=== PATIENT | female | born 1980 | race Caucasian/White ===

== ENCOUNTER 2016-12-20 01:31 | Emergency (ER) | payer OTHER ==
[2016-12-20 01:35] VITALS: TEMP 98.5
--- NOTE | 2016-12-20 01:46 | ED ---
General Adult HPI - General Chief complaint: Shortness of Breath Stated complaint: SOB/Pain Time Seen by Provider: 12/20/16 01:36 Source: patient, RN notes reviewed Mode of arrival: ambulatory Limitations: no limitations - History of Present Illness Initial comments: 28-year-old female presents emergency Department chief complaint of bodies, cough and shortness of breath. Patient states it started last 24 hours. She states that her cough is dry and nonproductive. Patient states that she felt that she had a fever, admits to chills. Patient does take pain medication which contains acetaminophen. Patient states that she does not have a sore throat, ear pain, headache or any neck stiffness. Patient had no GI symptoms including nausea, vomiting, or constipation. Denies any palpitations. Patient has no cardiac issues. Patient denies hypertension hyperlipidemia. - Related Data Previous Rx's Medication Instructions Recorded Azithromycin [Zithromax Z-pack] 0 mg PO DIRECTED #1 pack 12/20/16 Allergies Allergy/AdvReac Type Severity Reaction Status Date / Time latex AdvReac Itching Verified 12/20/16 01:35 IVORY SOAP AdvReac Itching Uncoded 12/20/16 01:35 Review of Systems ROS Statement: Those systems with pertinent positive or pertinent negative responses have been documented in the HPI. ROS Other: All systems not noted in ROS Statement are negative. Past Medical History Additional Past Medical History / Comment(s): BACK PAIN History of Any Multi-Drug Resistant Organisms: None Reported Additional Past Surgical History / Comment(s): [id number] Past Psychological History: No Psychological Hx Reported Smoking Status: Current every day smoker Past Alcohol Use History: None Reported Past Drug Use History: None Reported General Exam Limitations: no limitations General appearance: alert, in no apparent distress, anxious Head exam: Present: atraumatic, normocephalic, normal inspection Eye exam: Present: normal appearance, PERRL, EOMI. Absent: scleral icterus, conjunctival injection, periorbital swelling ENT exam: Present: normal exam, normal oropharynx, mucous membranes moist, TM's normal bilaterally, normal external ear exam Neck exam: Present: normal inspection, full ROM. Absent: tenderness, meningismus, lymphadenopathy Respiratory exam: Present: normal lung sounds bilaterally. Absent: respiratory distress, wheezes, rales, rhonchi, stridor Cardiovascular Exam: Present: regular rate, normal rhythm, normal heart sounds. Absent: systolic murmur, diastolic murmur, rubs, gallop, clicks GI/Abdominal exam: Present: soft, normal bowel sounds. Absent: distended, tenderness, guarding, rebound, rigid Neurological exam: Present: alert, oriented X3, CN II-XII intact Skin exam: Present: warm, dry, intact, normal color. Absent: rash Course Vital Signs 12/20/16 01:33 Temperature 98.5 F Pulse Rate 100 Respiratory 20 Rate Blood Pressure 127/89 O2 Sat by Pulse 100 Oximetry - Reevaluation(s) Reevaluation #1: 12/20/16 02:42 Patient reevaluated this time. Patient states she's too much improved after Ativan. Patient was having a panic attack and hyperventilating. Patient states that the pain is resolved and she is breathing much better. Patient updated on chest x-ray results which shows right-sided pneumonia. EKG Findings - EKG Comments: EKG Findings:: EKG performed at 1:51 normal sinus rhythm with a rate of 95, ME interval 122, QRS duration 82, QT/QTC 374/469 Medical Decision Making - Lab Data Lab Results 12/20/16 Range/Units 01:50 Influenza Type A RNA Not Detected (Not Detectd) Influenza Type B (PCR) Not Detected (Not Detectd) Disposition Clinical Impression: Pneumonia involving right lung, Panic attack Disposition: HOME SELF-CARE Condition: Stable Instructions: Bacterial Pneumonia (ED) Additional Instructions: Please return to the Emergency Department if symptoms worsen or any other concerns. Prescriptions: Azithromycin [Zithromax Z-pack] 0 mg PO DIRECTED #1 pack Time of Disposition: 02:43
[2016-12-20] MEDS ORDERED: LORazepam 1 MG TAB PO STA (02:14)
--- NOTE | 2016-12-20 02:32 | XR ---
EXAMINATION TYPE: XR chest 2V DATE OF EXAM: 12/20/2016 2:27 AM COMPARISON: 03/09/2014 HISTORY: History of cough and chest pain TECHNIQUE: Frontal and lateral views of the chest are obtained. FINDINGS: Faint opacities are noted in the right middle lobe of lung and is suspicious for active infiltrates. There is no pneumothorax or pleural effusion. The cardiac silhouette size is within normal limits. The osseous structures are intact. IMPRESSION: 1. Suspected mild active infiltrates in the right middle lobe of lung.
[2016-12-20] MEDS ORDERED: cefTRIAXone 1,000 MG VIAL (IM USE) IM STA (02:42)
[2016-12-20 03:27] VITALS: BP 133/77; PULSE 89; RESP 18
== END 2016-12-20 02:55 | disposition home or self-care (01) ==
LOC: EC 01:31
DX: J18.9 Pneumonia, unspecified organism (principal); F41.0 Panic disorder [episodic paroxysmal anxiety]; Z91.040 Latex allergy status; Z91.048 Other nonmedicinal substance allergy status; F17.200 Nicotine dependence, unspecified, uncomplicated; R06.4 Hyperventilation; R52 Pain, unspecified
CPT/HCPCS: 93005; 87502; 71020; 96372; 99285; J0696

== ENCOUNTER 2016-12-22 00:17 | Emergency (ER) | payer OTHER ==
[2016-12-22] MEDS ORDERED: SODIUM CHLORIDE 0.9% 1,000 ML IV ONE (00:37)
--- NOTE | 2016-12-22 00:40 | ED ---
SOB HPI - General Chief Complaint: Shortness of Breath Stated Complaint: KAVITHA-Revisit Time Seen by Provider: 12/22/16 00:29 Source: patient Mode of arrival: ambulatory Limitations: no limitations - History of Present Illness Initial Comments: Is a 36-year-old female who presents emergency department for worsening shortness of breath and some chest pain. She states that she was here couple of days ago and diagnosed with pneumonia. She was placed on azithromycin which she has been taking. She states that yesterday she felt improved however over the course of last 24 hours she states that her breathing has progressively gotten worse. She was called in an inhaler by her primary doctor however she states this has not helped. She states that when she was laying down she also had some left-sided chest discomfort that has since resolved. She admits to feeling chilled however no fevers. No abdominal pain. No nausea or vomiting or diarrhea. No other complaints. She was advised by her primary doctor to come back to the emergency department. - Related Data Previous Rx's Medication Instructions Recorded Azithromycin [Zithromax Z-pack] 0 mg PO DIRECTED #1 pack 12/20/16 Levofloxacin [Levaquin] 500 mg PO DAILY #6 tab 12/22/16 Allergies Allergy/AdvReac Type Severity Reaction Status Date / Time latex AdvReac Itching Verified 12/22/16 00:24 IVORY SOAP AdvReac Itching Uncoded 12/22/16 00:24 Review of Systems ROS Statement: Those systems with pertinent positive or pertinent negative responses have been documented in the HPI. ROS Other: All systems not noted in ROS Statement are negative. Past Medical History Additional Past Medical History / Comment(s): BACK PAIN History of Any Multi-Drug Resistant Organisms: None Reported Additional Past Surgical History / Comment(s): [id number] Past Psychological History: No Psychological Hx Reported Smoking Status: Current every day smoker Past Alcohol Use History: None Reported Past Drug Use History: None Reported General Exam - General Exam Comments Initial Comments: Constitutional: Awake alert Appears comfortable Head: Normocephalic atraumatic Eyes: no conjunctival injection No scleral icterus EOMI Neck: No JVD Supple Heart: Regular rate rhythm normal S1-S2 no murmurs Lungs: Clear to auscultation bilaterally No wheezing No rales, tachypnea Abdomen: Soft nondistended nontender Extremities: Non edematous DP pulses intact Radial pulses intact Neuro: A&Ox3 No focal neurologic deficits Psych: Appropriate mood and affect Limitations: no limitations Course Vital Signs 12/22/16 12/22/16 00:21 01:49 Temperature 98.6 F Pulse Rate 100 76 Respiratory 36 H 24 Rate Blood Pressure 130/80 133/83 O2 Sat by Pulse 100 100 Oximetry - Reevaluation(s) Reevaluation #1: 12/22/16 01:07 EKG showing normal sinus rhythm with a rate of 63. No ST segment changes or T- wave inversions. QTC is 466. Other intervals are normal. No ectopy. Medical Decision Making - Medical Decision Making Patient feels improved after time. Labwork was reviewed and unremarkable. Chest x-ray does show persistent infiltrate. VBG showed a little bit of respiratory alkalosis I'm concerned patient may have been hyperventilating. She does have a history of anxiety and panic attacks. Oxygen has been stable. The patient is now comfortable. I gave her the option to stay in the hospital for IV antibiotics however she stated that she rather go home. I'm going to give her one dose of IV Levaquin here and sent home on by mouth Levaquin. She can follow-up with her primary doctor for reevaluation. All questions were answered. - Lab Data Result diagrams: 12/22/16 00:53 12/22/16 00:53 Lab Results 12/22/16 12/22/16 12/22/16 Range/Units 00:53 00:53 00:53 WBC 4.7 (3.8-10.6) k/uL RBC 4.97 (3.80-5.40) m/uL Hgb 15.2 (11.4-16.0) gm/dL Hct 44.2 (34.0-46.0) % MCV 88.9 (80.0-100.0) fL MCH 30.6 (25.0-35.0) pg MCHC 34.5 (31.0-37.0) g/dL RDW 12.5 (11.5-15.5) % Plt Count 131 L (150-450) k/uL Neutrophils % 52 % Lymphocytes % 32 % Monocytes % 10 % Eosinophils % 2 % Basophils % 1 % Neutrophils # 2.4 (1.3-7.7) k/uL Lymphocytes # 1.5 (1.0-4.8) k/uL Monocytes # 0.5 (0-1.0) k/uL Eosinophils # 0.1 (0-0.7) k/uL Basophils # 0.0 (0-0.2) k/uL VBG pH (7.31-7.41) VBG pCO2 (37-51) mmHg VBG HCO3 (24-28) mmol/L Sodium 140 (137-145) mmol/L Potassium 3.0 L* (3.5-5.1) mmol/L Chloride 106 (98-107) mmol/L Carbon Dioxide 22 (22-30) mmol/L Anion Gap 12 mmol/L BUN 12 (7-17) mg/dL Creatinine 0.80 (0.52-1.04) mg/dL Est GFR (MDRD) Af Amer >60 (>60 ml/min/1.73 sqM) Est GFR (MDRD) Non-Af >60 (>60 ml/min/1.73 sqM) Glucose 105 H (74-99) mg/dL Plasma Lactic Acid Ba 2.3 H* (0.7-2.0) mmol/L Calcium 9.2 (8.4-10.2) mg/dL Magnesium 1.8 (1.6-2.3) mg/dL Total Bilirubin 0.4 (0.2-1.3) mg/dL AST 17 (14-36) U/L ALT 28 (9-52) U/L Alkaline Phosphatase 83 (38-126) U/L Total Protein 7.5 (6.3-8.2) g/dL Albumin 3.9 (3.5-5.0) g/dL Influenza Type A RNA (Not Detectd) Influenza Type B (PCR) (Not Detectd) 12/22/16 12/22/16 Range/Units 00:53 00:53 WBC (3.8-10.6) k/uL RBC (3.80-5.40) m/uL Hgb (11.4-16.0) gm/dL Hct (34.0-46.0) % MCV (80.0-100.0) fL MCH (25.0-35.0) pg MCHC (31.0-37.0) g/dL RDW (11.5-15.5) % Plt Count (150-450) k/uL Neutrophils % % Lymphocytes % % Monocytes % % Eosinophils % % Basophils % % Neutrophils # (1.3-7.7) k/uL Lymphocytes # (1.0-4.8) k/uL Monocytes # (0-1.0) k/uL Eosinophils # (0-0.7) k/uL Basophils # (0-0.2) k/uL VBG pH 7.47 H (7.31-7.41) VBG pCO2 31 L (37-51) mmHg VBG HCO3 22 L (24-28) mmol/L Sodium (137-145) mmol/L Potassium (3.5-5.1) mmol/L Chloride (98-107) mmol/L Carbon Dioxide (22-30) mmol/L Anion Gap mmol/L BUN (7-17) mg/dL Creatinine (0.52-1.04) mg/dL Est GFR (MDRD) Af Amer (>60 ml/min/1.73 sqM) Est GFR (MDRD) Non-Af (>60 ml/min/1.73 sqM) Glucose (74-99) mg/dL Plasma Lactic Acid Ba (0.7-2.0) mmol/L Calcium (8.4-10.2) mg/dL Magnesium (1.6-2.3) mg/dL Total Bilirubin (0.2-1.3) mg/dL AST (14-36) U/L ALT (9-52) U/L Alkaline Phosphatase (38-126) U/L Total Protein (6.3-8.2) g/dL Albumin (3.5-5.0) g/dL Influenza Type A RNA Not Detected (Not Detectd) Influenza Type B (PCR) Not Detected (Not Detectd) Disposition Clinical Impression: CAP (community acquired pneumonia) Disposition: HOME SELF-CARE Condition: Stable Instructions: Pneumonia (ED) Prescriptions: Levofloxacin [Levaquin] 500 mg PO DAILY #6 tab Referrals: Mary Jane Pak MD [Primary Care Provider] - 1-2 days
[2016-12-22 01:08] LABS: Basophils % (A) 1 %; CH 31.2; CHCM 35.2; Eosinophils # (A) 0.1 k/uL (0-0.7); Eosinophils % (A) 2 %; HCT 44.2 % (34.0-46.0); HDW 2.66; HGB 15.2 gm/dL (11.4-16.0); Luc # (Auto) 0.14; Luc % (Auto) 3; Lymphocytes # (A) 1.5 k/uL (1.0-4.8); Lymphocytes % (A) 32 %; MCH 30.6 pg (25.0-35.0); MCHC 34.5 g/dL (31.0-37.0); MCV 88.9 fL (80.0-100.0); Monocytes # (A) 0.5 k/uL (0-1.0); Monocytes % (A) 10 %; Neutrophils # (A) 2.4 k/uL (1.3-7.7); Neutrophils % (A) 52 %; RBC 4.97 m/uL (3.80-5.40); RDW 12.5 % (11.5-15.5); WBC 4.7 k/uL (3.8-10.6); WBC (Perox) 4.64
[2016-12-22 01:09] LABS: VBG PH 7.47 (7.31-7.41)
[2016-12-22 01:17] LABS: ALT 28 U/L (9-52); AST 17 U/L (14-36); Alkaline Phosphatase 83 U/L (38-126); Anion Gap 12 mmol/L; Blood Urea Nitrogen 12 mg/dL (7-17); Calcium 9.2 mg/dL (8.4-10.2); Carbon Dioxide 22 mmol/L (22-30); Chloride 106 mmol/L (98-107); Glucose 105 mg/dL (74-99); Magnesium 1.8 mg/dL (1.6-2.3); Non-African American GFR(MDRD) >60 (>60 ml/min/1.73 sqM); Sodium 140 mmol/L (137-145); Total Bilirubin 0.4 mg/dL (0.2-1.3); Total Protein 7.5 g/dL (6.3-8.2)
[2016-12-22] MEDS ORDERED: POTASSIUM CHLORIDE ER 20 MEQ TAB.ER PO STA (01:20)
--- NOTE | 2016-12-22 01:30 | XR ---
EXAMINATION TYPE: XR chest 2V DATE OF EXAM: 12/22/2016 1:15 AM COMPARISON: 12/20/2016 HISTORY: Difficulty in breathing and shortness of breath upper respiratory infection. TECHNIQUE: Frontal and lateral views of the chest are obtained. FINDINGS: Faint opacities are again noted in the right lung base and is suspicious for active infiltrates or pn eumonia in the right middle lobe of lung. The cardiac silhouette size is within normal limits. The osseous structures are intact. IMPRESSION: 1. No significant change is noted in the opacity of right lung base most likely representing right mi ddle lobe pneumonia since previous study 12/20/2016. A clinical correlation and follow-up is recommende d.
[2016-12-22] MEDS ORDERED: LEVOFLOXACIN 500MG-D5W PMX 500 MG in DEXTROSE/WATER 1 100ML.BAG IVPB STA (01:43)
[2016-12-22 03:30] VITALS: BP 130/85; PULSE 70; RESP 18; TEMP 97.8
== END 2016-12-22 03:30 | disposition home or self-care (01) ==
LOC: EC 00:17
DX: J18.9 Pneumonia, unspecified organism (principal); F17.200 Nicotine dependence, unspecified, uncomplicated; Z91.040 Latex allergy status; Z91.048 Other nonmedicinal substance allergy status
CPT/HCPCS: 36415; 93005; 80053; 82803; 83605; 83735; 85025; 87040; 87502; 71020; 99285; 96365; 96361; J1956

== ENCOUNTER 2017-06-16 08:32 | Emergency (ER) | payer OTHER ==
[2017-06-16] MEDS ORDERED: SODIUM CHLORIDE 0.9% 1,000 ML IV STA (08:45)
[2017-06-16] MEDS ORDERED: ONDANSETRON 4 MG/2 ML VIAL IVP STA ×2 (08:45→09:56)
--- NOTE | 2017-06-16 09:00 | ED ---
General Adult HPI - General Chief complaint: Abdominal Pain Stated complaint: abd pain Time Seen by Provider: 06/16/17 08:40 Source: patient, RN notes reviewed Mode of arrival: wheelchair Limitations: no limitations - History of Present Illness Initial comments: Patient 37-year-old female who presents emergency room today with a chief complaint of increased right lower quadrant pain that started approximately an hour ago. She does admit that she's been on her menstrual cycle for the last 10 days which she states is unusual for her. She states that she began noticing some discomfort in the middle of night but approximately an hour ago she began having increased pain to the right side of the lower abdomen. She does admit that she felt nauseated yesterday. She denies any other complaints or symptoms at this time. Patient denies any recent fever, chills, shortness of breath, chest pain, back pain, numbness or tingling, dysuria or hematuria, constipation or diarrhea, headaches or visual changes, or any other complaints. - Related Data Home Medications Medication Instructions Recorded Confirmed Dextroamphetamine/Amphetamine 30 mg PO QAM 06/16/17 06/16/17 [Adderall Xr] Naproxen Sodium [Midol] 220 mg PO Q12HR PRN 06/16/17 06/16/17 oxyCODONE-APAP 10-325MG [Percocet 1 tab PO Q6HR PRN 06/16/17 06/16/17 10-325 mg] Previous Rx's Medication Instructions Recorded Doxycycline Hyclate [Vibramycin] 100 mg PO BID #28 cap 06/16/17 Allergies Allergy/AdvReac Type Severity Reaction Status Date / Time latex Allergy Itching Verified 06/16/17 11:41 IVORY SOAP Allergy Itching Uncoded 06/16/17 11:41 Review of Systems ROS Statement: Those systems with pertinent positive or pertinent negative responses have been documented in the HPI. ROS Other: All systems not noted in ROS Statement are negative. Past Medical History Additional Past Medical History / Comment(s): BACK PAIN History of Any Multi-Drug Resistant Organisms: None Reported Additional Past Surgical History / Comment(s): [id number] Past Psychological History: No Psychological Hx Reported Smoking Status: Current every day smoker Past Alcohol Use History: None Reported Past Drug Use History: None Reported General Exam - General Exam Comments Initial Comments: General: The patient is awake and alert, in no distress, and does not appear acutely ill. Eye: Pupils are equal, round and reactive to light, extra-ocular movements are intact. No nystagmus. There is normal conjunctiva bilaterally. No signs of icterus. Ears, nose, mouth and throat: There are moist mucous membranes and no oral lesions. Neck: The neck is supple, there is no tenderness or JVD. Cardiovascular: There is a regular rate and rhythm. No murmur, rub or gallop is appreciated. Respiratory: Lungs are clear to auscultation, respirations are non-labored, breath sounds are equal. No wheezes, stridor, rales, or rhonchi. Gastrointestinal: Soft, non-distended, non-tender abdomen without masses or organomegaly noted. There is no rebound or guarding present. No CVA tenderness. Bowel sounds are unremarkable. Musculoskeletal: Normal ROM, no tenderness. Strength 5/5. Sensation intact. Pulses equal bilaterally 2+. Neurological: A&O x 3. CN II-XII intact, There are no obvious motor or sensory deficits. Coordination appears grossly intact. Speech is normal. Skin: Skin is warm and dry and no rashes or lesions are noted. Psychiatric: Cooperative, appropriate mood & affect, normal judgment. : KATIE Gonzalez present for exam. Patient does have some small amount of blood in the vaginal. Does have tenderness with bimanual exam. Limitations: no limitations Course Vital Signs 06/16/17 06/16/17 06/16/17 08:34 09:51 10:55 Temperature 98.0 F Pulse Rate 85 77 76 Respiratory 20 18 18 Rate Blood Pressure 138/82 114/69 123/66 O2 Sat by Pulse 98 100 100 Oximetry 06/16/17 06/16/17 11:45 13:08 Temperature Pulse Rate 77 75 Respiratory 16 18 Rate Blood Pressure 105/59 131/77 O2 Sat by Pulse 97 98 Oximetry - Reevaluation(s) Reevaluation #1: 06/16/17 12:44 Patient's ultrasound negative for any sign of appendicitis. They did not see the appendix in entirety. Patient's ultrasound of the ovary shows no evidence of torsion. No evidence of cyst. Patient did have CT of the abdomen performed to rule out appendicitis. CT does not show appendix. Patient's CT does reveal possible inflammatory changes in the lower pelvis. Pelvic exam performed and reveal a small amount of vaginal bleeding. Patient does admit that she's on her menstrual cycle currently. Patient does have some tenderness with bimanual exam. Was discussed with patient about possibility of appendicitis as it is not been reviewed and entirety. Patient states her brother had appendicitis that was undiagnosed ruptured. Was discussed with options of CAT scan with rectal contrast. Patient is in agreement. This is currently pending at this time. Medical Decision Making - Medical Decision Making Patient's CT with rectal contrast reviewed and shows appendix an entirely which shows that it's in normal limits. No evidence of appendicitis. Does show evidence of a right side pelvis information. Patient will be treated for PID. Given Rocephin and azithromycin here in the emergency room. Patient will be discharged home on doxycycline. Patient is advised follow-up the family doctor. She states she does have an appointment tomorrow. Also. Follow-up with [facility]. - Lab Data Result diagrams: 06/16/17 09:04 06/16/17 09:04 Lab Results 06/16/17 06/16/17 06/16/17 Range/Units 09:04 09:04 09:04 WBC 12.3 H (3.8-10.6) k/uL RBC 4.51 (3.80-5.40) m/uL Hgb 13.7 (11.4-16.0) gm/dL Hct 41.0 (34.0-46.0) % MCV 90.9 (80.0-100.0) fL MCH 30.3 (25.0-35.0) pg MCHC 33.3 (31.0-37.0) g/dL RDW 13.3 (11.5-15.5) % Plt Count 265 (150-450) k/uL Neutrophils % 80 % Lymphocytes % 13 % Monocytes % 5 % Eosinophils % 1 % Basophils % 1 % Neutrophils # 9.7 H (1.3-7.7) k/uL Lymphocytes # 1.6 (1.0-4.8) k/uL Monocytes # 0.6 (0-1.0) k/uL Eosinophils # 0.1 (0-0.7) k/uL Basophils # 0.1 (0-0.2) k/uL Sodium 140 (137-145) mmol/L Potassium 3.9 (3.5-5.1) mmol/L Chloride 106 (98-107) mmol/L Carbon Dioxide 25 (22-30) mmol/L Anion Gap 9 mmol/L BUN 12 (7-17) mg/dL Creatinine 0.69 (0.52-1.04) mg/dL Est GFR (MDRD) Af Amer >60 (>60 ml/min/1.73 sqM) Est GFR (MDRD) Non-Af >60 (>60 ml/min/1.73 sqM) Glucose 91 (74-99) mg/dL Calcium 8.9 (8.4-10.2) mg/dL Total Bilirubin 0.6 (0.2-1.3) mg/dL AST 21 (14-36) U/L ALT 27 (9-52) U/L Alkaline Phosphatase 91 (38-126) U/L Total Protein 7.6 (6.3-8.2) g/dL Albumin 3.8 (3.5-5.0) g/dL Amylase 33 (30-110) U/L Lipase 46 (23-300) U/L Urine Color Urine Appearance (Clear) Urine pH (5.0-8.0) Ur Specific [place] (1.001-1.035) Urine Protein (Negative) Urine Glucose (UA) (Negative) Urine Ketones (Negative) Urine Blood (Negative) Urine Nitrite (Negative) Urine Bilirubin (Negative) Urine Urobilinogen (<2.0) mg/dL Ur Leukocyte Esterase (Negative) Urine RBC (0-5) /hpf Urine WBC (0-5) /hpf Ur Squamous Epith Cells (0-4) /hpf Urine Mucus (None) /hpf Urine HCG, Qual Not Detected (Not Detectd) Trichomonas Ag (Rapid) (Negative) 06/16/17 06/16/17 Range/Units 09:04 12:30 WBC (3.8-10.6) k/uL RBC (3.80-5.40) m/uL Hgb (11.4-16.0) gm/dL Hct (34.0-46.0) % MCV (80.0-100.0) fL MCH (25.0-35.0) pg MCHC (31.0-37.0) g/dL RDW (11.5-15.5) % Plt Count (150-450) k/uL Neutrophils % % Lymphocytes % % Monocytes % % Eosinophils % % Basophils % % Neutrophils # (1.3-7.7) k/uL Lymphocytes # (1.0-4.8) k/uL Monocytes # (0-1.0) k/uL Eosinophils # (0-0.7) k/uL Basophils # (0-0.2) k/uL Sodium (137-145) mmol/L Potassium (3.5-5.1) mmol/L Chloride (98-107) mmol/L Carbon Dioxide (22-30) mmol/L Anion Gap mmol/L BUN (7-17) mg/dL Creatinine (0.52-1.04) mg/dL Est GFR (MDRD) Af Amer (>60 ml/min/1.73 sqM) Est GFR (MDRD) Non-Af (>60 ml/min/1.73 sqM) Glucose (74-99) mg/dL Calcium (8.4-10.2) mg/dL Total Bilirubin (0.2-1.3) mg/dL AST (14-36) U/L ALT (9-52) U/L Alkaline Phosphatase (38-126) U/L Total Protein (6.3-8.2) g/dL Albumin (3.5-5.0) g/dL Amylase (30-110) U/L Lipase (23-300) U/L Urine Color Yellow Urine Appearance Clear (Clear) Urine pH 5.5 (5.0-8.0) Ur Specific [place] 1.019 (1.001-1.035) Urine Protein Trace H (Negative) Urine Glucose (UA) Negative (Negative) Urine Ketones Negative (Negative) Urine Blood Large H (Negative) Urine Nitrite Negative (Negative) Urine Bilirubin Negative (Negative) Urine Urobilinogen <2.0 (<2.0) mg/dL Ur Leukocyte Esterase Moderate H (Negative) Urine RBC 93 H (0-5) /hpf Urine WBC 70 H (0-5) /hpf Ur Squamous Epith Cells 2 (0-4) /hpf Urine Mucus Few H (None) /hpf Urine HCG, Qual (Not Detectd) Trichomonas Ag (Rapid) Negative (Negative) Disposition Clinical Impression: PID (pelvic inflammatory disease) Disposition: HOME SELF-CARE Condition: Stable Instructions: Pelvic Inflammatory Disease (ED) Additional Instructions: Please use medication as discussed. Please follow-up with [facility]/family doctor in the next 2 days of symptoms have not improved. Please return to emergency room if the symptoms increase or worsen or for any other concerns. Prescriptions: Doxycycline Hyclate [Vibramycin] 100 mg PO BID #28 cap Referrals: Mary Jane Pak MD [Primary Care Provider] - 1-2 days Sonu Reeves MD [STAFF PHYSICIAN] - 1-2 days Time of Disposition: 14:17
[2017-06-16 09:18] LABS: Basophils # (A) 0.1 k/uL (0-0.2); Basophils % (A) 1 %; CH 31.1; CHCM 34.3; Eosinophils # (A) 0.1 k/uL (0-0.7); Eosinophils % (A) 1 %; HDW 2.55; HGB 13.7 gm/dL (11.4-16.0); Luc # (Auto) 0.12; Luc % (Auto) 1; Lymphocytes # (A) 1.6 k/uL (1.0-4.8); Lymphocytes % (A) 13 %; MCH 30.3 pg (25.0-35.0); MCHC 33.3 g/dL (31.0-37.0); MCV 90.9 fL (80.0-100.0); Mean Platelet Volume 7.6; Monocytes # (A) 0.6 k/uL (0-1.0); Monocytes % (A) 5 %; Neutrophils # (A) 9.7 k/uL (1.3-7.7); Neutrophils % (A) 80 %; RBC 4.51 m/uL (3.80-5.40); RDW 13.3 % (11.5-15.5); WBC 12.3 k/uL (3.8-10.6); WBC (Perox) 12.27
[2017-06-16 09:25] LABS: Appearance,Urine Clear (Clear); Bilirubin,Urine Negative (Negative); Glucose,Urine (UA) Negative (Negative); Ketones,Urine Negative (Negative); Leukocyte Esterase,Urine Moderate (Negative); Mucus,Urine Few /hpf; Nitrite,Urine Negative (Negative); PH, Urine 5.5 (5.0-8.0); Particle Count 5690; Protein,Urine Trace (Negative); RBC,Urine 93 /hpf (0-5); Specific Gravity,Urine 1.019 (1.001-1.035); Squamous Epithelial Cell,Urine 2 /hpf (0-4); UA Billing (MACRO vs. MICRO) MICRO; Urobilinogen,Urine <2.0 mg/dL (<2.0); WBC,Urine 70 /hpf (0-5)
[2017-06-16 09:31] LABS: ALT 27 U/L (9-52); AST 21 U/L (14-36); Alkaline Phosphatase 91 U/L (38-126); Amylase 33 U/L (30-110); Anion Gap 9 mmol/L; Blood Urea Nitrogen 12 mg/dL (7-17); Calcium 8.9 mg/dL (8.4-10.2); Carbon Dioxide 25 mmol/L (22-30); Chloride 106 mmol/L (98-107); Glucose 91 mg/dL (74-99); Non-African American GFR(MDRD) >60 (>60 ml/min/1.73 sqM); Potassium 3.9 mmol/L (3.5-5.1); Sodium 140 mmol/L (137-145); Total Bilirubin 0.6 mg/dL (0.2-1.3); Total Protein 7.6 g/dL (6.3-8.2)
[2017-06-16] MEDS ORDERED: HYDROmorphone 1 MG/ML 1 ML SYRINGE IVP STA (09:56)
[2017-06-16] MEDS ORDERED: RX INFO: IV CONTRAST WAS GIVEN 1 EACH MISC MISCELLANE PRN (10:49)
--- NOTE | 2017-06-16 11:02 | US ---
EXAMINATION TYPE: US abdomen APPY DATE OF EXAM: 06/16/2017 COMPARISON: NONE CLINICAL HISTORY: Pain. RLQ pain x 1 day APPENDIX Is the appendix seen in its entirety from the proximal cecum to distal end: No, appendix not seen wi th certainty at this time, visualized portions of RLQ appear wnl at this time IMPRESSION: Nonvisualization of appendix
--- NOTE | 2017-06-16 11:04 | US ---
EXAMINATION TYPE: US transvaginal DATE OF EXAM: 06/16/2017 COMPARISON: NONE CLINICAL HISTORY: pain. RLQ pain x 1 day, 6, para 3, miscarriage 3, history of tubal ligation TECHNIQUE: Transvaginal (TV) Date of LMP: 06/06/2017 EXAM MEASUREMENTS: Uterus: 8.7 x 5.3 x 6.3 cm Endometrial Stripe: 0.9 cm Right Ovary: 3.9 x 3.4 x 2.8 cm Left Ovary: 3.2 x 1.6 x 3.7 cm 1. Uterus: retroverted, 1.3cm nabothian cyst 2. Endometrium: appears slightly thickened at 0.9cm for patient's menstrual cycle 3. Right Ovary: multiple follicles 4. Left Ovary: multiple follicles Spectral, color and waveform doppler imaging shows good arterial and venous flow within the ovaries ; there is no evidence for ovarian torsion. 5. Bilateral Adnexa: small amount of free fluid in right adnexa 6. Posterior cul-de-sac: wnl IMPRESSION: No significant abnormalities evident. Small amount of free fluid adjacent to the right ov [place]. Ovarian torsion is not present.
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
[2017-06-16] MEDS ORDERED: ACETAMINOPHEN IV (For NPO) 1,000 MG in SALINE 100 100ML.BAG IVPB STA (13:13)
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
[2017-06-16] MEDS ORDERED: AZITHROMYCIN 500 MG TAB PO STA (14:09)
[2017-06-16 15:13] VITALS: BP 113/62; PULSE 79; RESP 16; TEMP 100.4
== END 2017-06-16 15:12 | disposition home or self-care (01) ==
LOC: EC 08:32
DX: N73.9 Female pelvic inflammatory disease, unspecified (principal); R11.0 Nausea; F17.200 Nicotine dependence, unspecified, uncomplicated; Z79.899 Other long term (current) drug therapy; Z91.040 Latex allergy status; Z91.048 Other nonmedicinal substance allergy status
CPT/HCPCS: 36415; 80053; 87591; 87491; 82150; 83690; 85025; 81001; 81025; 87040; 87808; 87070; 93975; 76705; 76830; 74176; 74177; 99284; 96365; 96368; 96375 ×2; 96376; 96361; J2405; J0696; J1170; Q9967; J0131; 87205

== ENCOUNTER 2017-06-17 14:45 | Emergency (ER) | payer OTHER ==
[2017-06-17 14:52] VITALS: BP 123/87; PULSE 86; RESP 18; TEMP 97.7
[2017-06-17 18:11] LABS: Basophils % (A) 0 %; CH 30.3; CHCM 33.6; Eosinophils # (A) 0.1 k/uL (0-0.7); Eosinophils % (A) 1 %; HCT 36.6 % (34.0-46.0); HDW 2.56; HGB 12.5 gm/dL (11.4-16.0); Luc # (Auto) 0.14; Luc % (Auto) 2; Lymphocytes % (A) 12 %; MCHC 34.2 g/dL (31.0-37.0); MCV 90.6 fL (80.0-100.0); Mean Platelet Volume 7.2; Monocytes # (A) 0.6 k/uL (0-1.0); Monocytes % (A) 7 %; Neutrophils # (A) 6.8 k/uL (1.3-7.7); Neutrophils % (A) 79 %; RBC 4.04 m/uL (3.80-5.40); RDW 12.7 % (11.5-15.5); WBC 8.7 k/uL (3.8-10.6); WBC (Perox) 8.21
[2017-06-17 18:19] LABS: Appearance,Urine Clear (Clear); Bilirubin,Urine Negative (Negative); Glucose,Urine (UA) Negative (Negative); Ketones,Urine 1+ (Negative); Leukocyte Esterase,Urine Negative (Negative); Mucus,Urine Few /hpf; Nitrite,Urine Negative (Negative); PH, Urine 6.5 (5.0-8.0); Particle Count 5112; Protein,Urine Trace (Negative); RBC,Urine 42 /hpf (0-5); Specific Gravity,Urine 1.024 (1.001-1.035); Squamous Epithelial Cell,Urine 2 /hpf (0-4); UA Billing (MACRO vs. MICRO) MICRO; WBC,Urine 5 /hpf (0-5)
[2017-06-17 18:24] LABS: ALT 23 U/L (9-52); AST 30 U/L (14-36); Alkaline Phosphatase 88 U/L (38-126); Anion Gap 10 mmol/L; Blood Urea Nitrogen 12 mg/dL (7-17); Calcium 8.5 mg/dL (8.4-10.2); Carbon Dioxide 25 mmol/L (22-30); Chloride 105 mmol/L (98-107); Glucose 91 mg/dL (74-99); Non-African American GFR(MDRD) >60 (>60 ml/min/1.73 sqM); Sodium 140 mmol/L (137-145); Total Bilirubin 0.6 mg/dL (0.2-1.3)
--- NOTE | 2017-06-17 18:48 | ED ---
General Adult HPI - General Chief complaint: Abdominal Pain Stated complaint: Lower Abd Pain Source: patient Mode of arrival: ambulatory Limitations: no limitations - History of Present Illness Initial comments: 37-year-old female presenting for evaluation of right lower pelvic abdominal pain. She was just seen at this facility yesterday and after receiving an ultrasound of her pelvis, CT abdomen and pelvis which was inconclusive for appendicitis, and then another CT abdomen and pelvis with rectal contrast which showed a normal appendix. She was diagnosed with PID and given antibiotics in the ED and discharged with another prescription for antibiotics which she has been taking. She went to see her primary care physician today who requested she return to the ED for repeat labs to see if her white blood cell count was trending down. She states that she has medications for pain control at home and that her pain is currently well controlled. She states she is feeling better however she just wants to confirm that she is improving by lab analysis. - Related Data Home Medications Medication Instructions Recorded Confirmed Dextroamphetamine/Amphetamine 30 mg PO QAM 06/16/17 06/17/17 [Adderall Xr] oxyCODONE-APAP 10-325MG [Percocet 1 tab PO Q6HR PRN 06/16/17 06/17/17 10-325 mg] Naproxen Sodium [Aleve] 440 mg PO BID PRN 06/17/17 06/17/17 Previous Rx's Medication Instructions Recorded Doxycycline Hyclate [Vibramycin] 100 mg PO BID #28 cap 06/16/17 Allergies Allergy/AdvReac Type Severity Reaction Status Date / Time latex Allergy Itching/Ezra Verified 06/17/17 16:50 thema IVORY SOAP Allergy Itching Uncoded 06/17/17 14:52 Review of Systems ROS Statement: Those systems with pertinent positive or pertinent negative responses have been documented in the HPI. ROS Other: All systems not noted in ROS Statement are negative. Constitutional: Denies: fever, chills Eyes: Denies: eye pain, eye discharge, vision change ENT: Denies: ear pain, throat pain Respiratory: Denies: cough, dyspnea Cardiovascular: Denies: chest pain, palpitations, dyspnea on exertion, orthopnea Gastrointestinal: Reports: abdominal pain. Denies: nausea, vomiting Genitourinary: Denies: urgency, dysuria Musculoskeletal: Denies: back pain, arthralgia, myalgia Skin: Denies: rash, lesions Neurological: Denies: headache, weakness Psychiatric: Denies: anxiety, depression Hematological/Lymphatic: Denies: easy bleeding, easy bruising Past Medical History Additional Past Medical History / Comment(s): BACK PAIN History of Any Multi-Drug Resistant Organisms: None Reported Additional Past Surgical History / Comment(s): [id number] Past Psychological History: No Psychological Hx Reported Smoking Status: Current every day smoker Past Alcohol Use History: None Reported Past Drug Use History: None Reported General Exam Limitations: no limitations General appearance: alert, in no apparent distress Head exam: Present: atraumatic, normocephalic, normal inspection Eye exam: Present: normal appearance, PERRL, EOMI. Absent: scleral icterus, conjunctival injection, periorbital swelling ENT exam: Present: normal exam, mucous membranes moist Neck exam: Present: normal inspection. Absent: tenderness, meningismus, lymphadenopathy Respiratory exam: Present: normal lung sounds bilaterally. Absent: respiratory distress, wheezes, rales, rhonchi, stridor Cardiovascular Exam: Present: regular rate, normal rhythm, normal heart sounds. Absent: systolic murmur, diastolic murmur, rubs, gallop, clicks GI/Abdominal exam: Present: soft, normal bowel sounds. Absent: distended, tenderness, guarding, rebound, rigid Rectal exam: Present: deferred Extremities exam: Present: normal inspection, full ROM, normal capillary refill. Absent: tenderness, pedal edema, joint swelling, calf tenderness Back exam: Present: normal inspection Neurological exam: Present: alert, oriented X3, CN II-XII intact Psychiatric exam: Present: normal affect, normal mood Skin exam: Present: warm, dry, intact, normal color. Absent: rash Course Vital Signs 06/17/17 14:49 Temperature 97.7 F Pulse Rate 86 Respiratory 18 Rate Blood Pressure 123/87 O2 Sat by Pulse 100 Oximetry Medical Decision Making - Medical Decision Making 37-year-old female presented for evaluation of right pelvis pain and a recent diagnosis of PID. She was treated with antibiotics here in the department yesterday and was discharged with a prescription for antibiotics as well. She saw her primary care physician who recommend she come back to the ED for repeat labs. On physical examination she has mild tenderness to the right pelvis however she states is much improved from yesterday she is feeling much better. Labs are obtained which showed a markedly decrease in her white blood cell count. The patient was informed of these results and requested discharge at this time. She was offered pain control and refused stating that she had Percocets for previous pathology. She was advised to continue taking the antibiotics as previously prescribed. She was further given return instructions. The patient acknowledged an understanding of this information and agreed with this plan of care. Prior to discharge she was reevaluated and had a soft non-peritoneal abdomen without guarding, rigidity, or rebound. - Lab Data Result diagrams: 06/17/17 17:52 06/17/17 17:52 Lab Results 06/17/17 06/17/17 06/17/17 Range/Units 17:44 17:52 17:52 WBC 8.7 (3.8-10.6) k/uL RBC 4.04 (3.80-5.40) m/uL Hgb 12.5 (11.4-16.0) gm/dL Hct 36.6 (34.0-46.0) % MCV 90.6 (80.0-100.0) fL MCH 31.0 (25.0-35.0) pg MCHC 34.2 (31.0-37.0) g/dL RDW 12.7 (11.5-15.5) % Plt Count 187 (150-450) k/uL Neutrophils % 79 % Lymphocytes % 12 % Monocytes % 7 % Eosinophils % 1 % Basophils % 0 % Neutrophils # 6.8 (1.3-7.7) k/uL Lymphocytes # 1.0 (1.0-4.8) k/uL Monocytes # 0.6 (0-1.0) k/uL Eosinophils # 0.1 (0-0.7) k/uL Basophils # 0.0 (0-0.2) k/uL Sodium 140 (137-145) mmol/L Potassium 4.0 (3.5-5.1) mmol/L Chloride 105 (98-107) mmol/L Carbon Dioxide 25 (22-30) mmol/L Anion Gap 10 mmol/L BUN 12 (7-17) mg/dL Creatinine 0.60 (0.52-1.04) mg/dL Est GFR (MDRD) Af Amer >60 (>60 ml/min/1.73 sqM) Est GFR (MDRD) Non-Af >60 (>60 ml/min/1.73 sqM) Glucose 91 (74-99) mg/dL Calcium 8.5 (8.4-10.2) mg/dL Total Bilirubin 0.6 (0.2-1.3) mg/dL AST 30 (14-36) U/L ALT 23 (9-52) U/L Alkaline Phosphatase 88 (38-126) U/L Total Protein 7.0 (6.3-8.2) g/dL Albumin 3.4 L (3.5-5.0) g/dL Urine Color Yellow Urine Appearance Clear (Clear) Urine pH 6.5 (5.0-8.0) Ur Specific [place] 1.024 (1.001-1.035) Urine Protein Trace H (Negative) Urine Glucose (UA) Negative (Negative) Urine Ketones 1+ H (Negative) Urine Blood Small H (Negative) Urine Nitrite Negative (Negative) Urine Bilirubin Negative (Negative) Urine Urobilinogen 4.0 (<2.0) mg/dL Ur Leukocyte Esterase Negative (Negative) Urine RBC 42 H (0-5) /hpf Urine WBC 5 (0-5) /hpf Ur Squamous Epith Cells 2 (0-4) /hpf Urine Mucus Few H (None) /hpf Disposition Clinical Impression: Pelvic pain Disposition: HOME SELF-CARE Condition: Stable Instructions: Pelvic Inflammatory Disease (ED) Referrals: Mary Jane Pak MD [Primary Care Provider] - 1-2 days Time of Disposition: 18:47
== END 2017-06-17 19:05 | disposition home or self-care (01) ==
LOC: EC 14:45
DX: R10.2 Pelvic and perineal pain (principal); F17.200 Nicotine dependence, unspecified, uncomplicated; Z91.040 Latex allergy status; Z91.09 Other allergy status, other than to drugs and biological substances; Z79.899 Other long term (current) drug therapy
CPT/HCPCS: 36415; 80053; 81001; 85025; 99284

== ENCOUNTER 2017-07-28 07:04 | Observation (INO) | payer OTHER ==
[2017-07-28] MEDS ORDERED: NITROGLYCERIN OINT 1 INCH/GM PACKET TOPICAL STA (07:28)
[2017-07-28] MEDS ORDERED: ASPIRIN 81 MG PO STA (07:28)
--- NOTE | 2017-07-28 07:39 | ED ---
General Adult HPI - General Chief complaint: Chest Pain Stated complaint: Chest Pain Time Seen by Provider: 07/28/17 07:04 Source: patient, RN notes reviewed Mode of arrival: ambulatory Limitations: no limitations - History of Present Illness Initial comments: This is a 37-year-old female who presents to the emergency department complaining of pain in her sternum when she woke up this morning. Patient states she also has some upper back pain. Patient had recent surgery on her lower back for a fusion area patient denies any difficulty breathing shortness of breath per patient denies any pain down the arm and into her neck. Patient denies any nausea. Patient denies abdominal pain patient denies any fever chills or cough. Patient denies headache patient denies numbness weakness. Patient denies any lightheadedness dizziness or near syncopal episode. Patient states pain is sharp in is more painful when she takes deep breath or moves. - Related Data Home Medications Medication Instructions Recorded Confirmed Dextroamphetamine/Amphetamine 30 mg PO QAM 06/16/17 07/28/17 [Adderall Xr] oxyCODONE-APAP 10-325MG [Percocet 1 tab PO Q4HR PRN 06/16/17 07/28/17 10-325 mg] Diazepam [Valium] 5 mg PO HS PRN 07/28/17 07/28/17 Docusate [Colace] 100 mg PO BID 07/28/17 07/28/17 Methocarbamol [Robaxin] 750 mg PO Q6HR 07/28/17 07/28/17 Sennosides [Senna] 17.2 mg PO BID 07/28/17 07/28/17 diphenhydrAMINE & Zinc Cream 1 applic TOPICAL BID PRN 07/28/17 07/28/17 [Benadryl Cream] methylPREDNISolone [Medrol Dose See Taper PO DIRECTED 07/28/17 07/28/17 Pack] Allergies Allergy/AdvReac Type Severity Reaction Status Date / Time latex Allergy Itching/Ezra Verified 07/28/17 07:54 thema IVORY SOAP Allergy Itching Uncoded 07/28/17 07:11 Review of Systems ROS Statement: Those systems with pertinent positive or pertinent negative responses have been documented in the HPI. ROS Other: All systems not noted in ROS Statement are negative. Past Medical History Additional Past Medical History / Comment(s): BACK PAIN History of Any Multi-Drug Resistant Organisms: None Reported Past Surgical History: Hernia Repair, Tubal Ligation Additional Past Surgical History / Comment(s): [id number], laminectomy Past Psychological History: No Psychological Hx Reported Smoking Status: Current some day smoker Past Alcohol Use History: None Reported Past Drug Use History: None Reported General Exam - General Exam Comments Initial Comments: GENERAL: Patient is well-developed and well-nourished. Patient is nontoxic and well- hydrated and is in mild distress. ENT: Neck is soft and supple. No significant lymphadenopathy is noted. Oropharynx is clear. Moist mucous membranes. Neck has full range of motion without eliciting any pain. EYES: The sclera were anicteric and conjunctiva were pink and moist. Extraocular movements were intact and pupils were equal round and reactive to light. Eyelids were unremarkable. PULMONARY: Unlabored respirations. Good breath sounds bilaterally. No audible rales rhonchi or wheezing was noted. CARDIOVASCULAR: There is a regular rate and rhythm without any murmurs gallops or rubs. ABDOMEN: Soft and nontender with normal bowel sounds. No palpable organomegaly was noted. There is no palpable pulsatile mass. SKIN: Skin is clear with no lesions or rashes and otherwise unremarkable. NEUROLOGIC: Patient is alert and oriented x3. Cranial nerves II through XII are grossly intact. Motor and sensory are also intact. Normal speech, volume and content. Symmetrical smile. MUSCULOSKELETAL: Normal extremities with adequate strength and full range of motion. No lower extremity swelling or edema. No calf tenderness. LYMPHATICS: No significant lymphadenopathy is noted PSYCHIATRIC: Normal psychiatric evaluation. Normal interpersonal interactions appears functionally intact in deals appropriately with others. No signs of depression. No signs of anxiety. Limitations: no limitations Course Vital Signs 07/28/17 07:08 Temperature 97.3 F L Pulse Rate 73 Respiratory 18 Rate Blood Pressure 125/91 O2 Sat by Pulse 100 Oximetry Medical Decision Making - Medical Decision Making EKG shows normal sinus rhythm at 63 bpm VA interval 242 QRS is 96 QT interval 460 QTC is 470. Patient's EKG shows no ST segment elevation or depression or T wave abnormalities are noted Chest x-ray shows no acute abnormality. - Lab Data Result diagrams: 07/28/17 07:25 07/28/17 07:25 Lab Results 09/10/17 09/10/17 09/10/17 Range/Units 07:25 07:25 07:25 WBC 7.2 (3.8-10.6) k/uL RBC 4.83 (3.80-5.40) m/uL Hgb 14.9 (11.4-16.0) gm/dL Hct 42.7 (34.0-46.0) % MCV 88.4 (80.0-100.0) fL MCH 30.8 (25.0-35.0) pg MCHC 34.8 (31.0-37.0) g/dL RDW 13.2 (11.5-15.5) % Plt Count 237 (150-450) k/uL Neutrophils % 65 % Lymphocytes % 27 % Monocytes % 4 % Eosinophils % 2 % Basophils % 1 % Neutrophils # 4.7 (1.3-7.7) k/uL Lymphocytes # 2.0 (1.0-4.8) k/uL Monocytes # 0.3 (0-1.0) k/uL Eosinophils # 0.1 (0-0.7) k/uL Basophils # 0.1 (0-0.2) k/uL PT (9.0-12.0) sec INR (<1.2) APTT (22.0-30.0) sec Sodium 141 (137-145) mmol/L Potassium 4.0 (3.5-5.1) mmol/L Chloride 103 (98-107) mmol/L Carbon Dioxide 26 (22-30) mmol/L Anion Gap 12 mmol/L BUN 15 (7-17) mg/dL Creatinine 0.69 (0.52-1.04) mg/dL Est GFR (MDRD) Af Amer >60 (>60 ml/min/1.73 sqM) Est GFR (MDRD) Non-Af >60 (>60 ml/min/1.73 sqM) Glucose 83 (74-99) mg/dL Calcium 10.0 (8.4-10.2) mg/dL Magnesium 1.8 (1.6-2.3) mg/dL Total Bilirubin 0.6 (0.2-1.3) mg/dL AST 54 H (14-36) U/L ALT 77 H (9-52) U/L Alkaline Phosphatase 112 (38-126) U/L Total Creatine Kinase 24 L (30-135) U/L CK-MB (CK-2) 0.8 (0.0-2.4) ng/mL CK-MB (CK-2) Rel Index 3.3 Troponin I <0.012 (0.000-0.034) ng/mL Total Protein 9.3 H (6.3-8.2) g/dL Albumin 4.6 (3.5-5.0) g/dL 07/28/17 Range/Units 07:25 WBC (3.8-10.6) k/uL RBC (3.80-5.40) m/uL Hgb (11.4-16.0) gm/dL Hct (34.0-46.0) % MCV (80.0-100.0) fL MCH (25.0-35.0) pg MCHC (31.0-37.0) g/dL RDW (11.5-15.5) % Plt Count (150-450) k/uL Neutrophils % % Lymphocytes % % Monocytes % % Eosinophils % % Basophils % % Neutrophils # (1.3-7.7) k/uL Lymphocytes # (1.0-4.8) k/uL Monocytes # (0-1.0) k/uL Eosinophils # (0-0.7) k/uL Basophils # (0-0.2) k/uL PT 10.3 (9.0-12.0) sec INR 1.0 (<1.2) APTT 22.9 (22.0-30.0) sec Sodium (137-145) mmol/L Potassium (3.5-5.1) mmol/L Chloride (98-107) mmol/L Carbon Dioxide (22-30) mmol/L Anion Gap mmol/L BUN (7-17) mg/dL Creatinine (0.52-1.04) mg/dL Est GFR (MDRD) Af Amer (>60 ml/min/1.73 sqM) Est GFR (MDRD) Non-Af (>60 ml/min/1.73 sqM) Glucose (74-99) mg/dL Calcium (8.4-10.2) mg/dL Magnesium (1.6-2.3) mg/dL Total Bilirubin (0.2-1.3) mg/dL AST (14-36) U/L ALT (9-52) U/L Alkaline Phosphatase (38-126) U/L Total Creatine Kinase (30-135) U/L CK-MB (CK-2) (0.0-2.4) ng/mL CK-MB (CK-2) Rel Index Troponin I (0.000-0.034) ng/mL Total Protein (6.3-8.2) g/dL Albumin (3.5-5.0) g/dL Disposition Clinical Impression: Chest pain Disposition: ADMITTED IP TO THIS HOSP Referrals: Mary Jane Pak MD [Primary Care Provider] - 1-2 days Time of Disposition: 08:36
[2017-07-28 07:43] LABS: Basophils # (A) 0.1 k/uL (0-0.2); Basophils % (A) 1 %; CHCM 34.1; Eosinophils # (A) 0.1 k/uL (0-0.7); Eosinophils % (A) 2 %; HCT 42.7 % (34.0-46.0); HDW 2.78; HGB 14.9 gm/dL (11.4-16.0); Luc # (Auto) 0.09; Luc % (Auto) 1; Lymphocytes % (A) 27 %; MCH 30.8 pg (25.0-35.0); MCHC 34.8 g/dL (31.0-37.0); MCV 88.4 fL (80.0-100.0); Mean Platelet Volume 7.1; Monocytes # (A) 0.3 k/uL (0-1.0); Monocytes % (A) 4 %; Neutrophils # (A) 4.7 k/uL (1.3-7.7); Neutrophils % (A) 65 %; RBC 4.83 m/uL (3.80-5.40); RDW 13.2 % (11.5-15.5); WBC 7.2 k/uL (3.8-10.6)
[2017-07-28 07:51] LABS: Partial Thromboplastin Time 22.9 sec (22.0-30.0); Prothrombin Time 10.3 sec (9.0-12.0)
[2017-07-28 08:03] LABS: Creatine Kinase 24 U/L (30-135)
[2017-07-28 08:16] LABS: Creatine Kinase MB 0.8 ng/mL (0.0-2.4); Troponin I <0.012 ng/mL (0.000-0.034)
--- NOTE | 2017-07-28 08:19 | XR ---
EXAMINATION TYPE: XR chest 2V DATE OF EXAM: 07/28/2017 HISTORY: Chest Pain. REFERENCE: Previous study dated 12/22/2016. FINDINGS: The lungs are overinflated but clear. Pleural spaces are clear. Heart size is normal. IMPRESSION: COPD.
[2017-07-28 08:20] LABS: ALT 77 U/L (9-52); AST 54 U/L (14-36); Alkaline Phosphatase 112 U/L (38-126); Anion Gap 12 mmol/L; Blood Urea Nitrogen 15 mg/dL (7-17); Carbon Dioxide 26 mmol/L (22-30); Chloride 103 mmol/L (98-107); Glucose 83 mg/dL (74-99); Magnesium 1.8 mg/dL (1.6-2.3); Non-African American GFR(MDRD) >60 (>60 ml/min/1.73 sqM); Sodium 141 mmol/L (137-145); Total Bilirubin 0.6 mg/dL (0.2-1.3); Total Protein 9.3 g/dL (6.3-8.2)
[2017-07-28] MEDS ORDERED: NITROGLYCERIN SL TABS 0.4 MG TAB SUBLINGUAL PRN (08:36)
[2017-07-28 09:52] VITALS: BMI 20.3
--- NOTE | 2017-07-28 10:44 | P.CRDCN ---
History of Present Illness Consult date: 07/28/17 Consult reason: chest pain History of present illness: 37-year-old lady with history of chronic back pain status post recent back surgery at [facility] comes comes in complaining of chest pain. She describes it as a sharp precordial pain and related to exertion unassociated with diaphoresis she was concerned and came in. It was mild intensity. The pain had gradually subsided. At the time of my evaluation her EKG looks normal and one set of troponin that is negative. Her chest discomfort is atypical. Her coronary risk factors in the form of smoking. I advised her to quit smoking I will obtain another set of troponin and a d-dimer if this workup is benign we should be able to discharge her home and continue with outpatient workup Review of Systems Constitutional: Denies chills. Denies fever. Eyes: Denies blurred vision. Denies pain. Ears, nose, mouth and throat: Denies headache. Denies sore throat. Cardiovascular: has chest pain. Denies shortness of breath. Respiratory: Denies cough. Gastrointestinal: Denies abdominal pain. Denies diarrhea. Denies nausea. Denies vomiting. Musculoskeletal: Denies myalgias. Integumentary: Denies pruritus. Denies rash. Neurological: Denies numbness. Denies weakness. Psychiatric: Denies anxiety. Denies depression. Endocrine: Denies fatigue. Denies weight change. Genitourinary: Denies burning, hematuria, frequency of urination. Hematological: No anemia or excess bleeding. Past Medical History Additional Past Medical History / Comment(s): endometriosis scheduled to have an ablation end of 2016, raynauds syndrome History of Any Multi-Drug Resistant Organisms: None Reported Past Surgical History: Hernia Repair, Tubal Ligation Additional Past Surgical History / Comment(s): [id number] x2, laminectomy, D&C x2, leep procedure Past Anesthesia/Blood Transfusion Reactions: No Reported Reaction Additional Past Anesthesia/Blood Transfusion Reaction / Comment(s): pt has had blood transusions and did fine with them. Past Psychological History: No Psychological Hx Reported Smoking Status: Current some day smoker Past Alcohol Use History: None Reported Additional Past Alcohol Use History / Comment(s): pt states she smokes 2 packs a week. Past Drug Use History: None Reported Medications and Allergies Home Medications Medication Instructions Recorded Confirmed Type Dextroamphetamine/Amphetamine 30 mg PO QAM 06/16/17 07/28/17 History [Adderall Xr] oxyCODONE-APAP 10-325MG [Percocet 1 tab PO Q4HR PRN 06/16/17 07/28/17 History 10-325 mg] Diazepam [Valium] 5 mg PO HS PRN 07/28/17 07/28/17 History Methocarbamol [Robaxin] 750 mg PO Q6HR 07/28/17 07/28/17 History diphenhydrAMINE & Zinc Cream 1 applic TOPICAL BID PRN 07/28/17 07/28/17 History [Benadryl Cream] methylPREDNISolone [Medrol Dose See Taper PO DIRECTED 07/28/17 07/28/17 History Pack] Allergies Allergy/AdvReac Type Severity Reaction Status Date / Time latex Allergy Itching/Ezra Verified 07/28/17 07:54 thema IVORY SOAP Allergy Itching Uncoded 07/28/17 07:11 Physical Exam Vitals: Vital Signs Temp Pulse Pulse Resp BP BP Pulse Ox 07/28/17 10:06 60 14 07/28/17 09:20 97.7 F 60 14 100/68 100 07/28/17 09:03 57 L 18 117/7 99 07/28/17 08:00 50 L 18 108/62 100 07/28/17 07:08 97.3 F L 73 18 125/91 100 Intake and Output 07/27/17 07/28/17 07/28/17 22:59 06:59 14:59 Other: Voiding Method Toilet Weight 58.967 kg Patient Weight 07/29/17 06:59 Weight 58.967 kg General: The patient is awake and alert, in no distress, and does not appear acutely ill. Skin: Skin is warm and dry and no rashes or lesions are noted. Eye: Pupils are equal, round and reactive to light, extra-ocular movements are intact; there is normal conjunctiva bilaterally. Ears, nose, mouth and throat: There are moist mucous membranes and no oral lesions. Neck: The neck is supple, there is no tenderness or JVD. Cardiovascular: There is a regular rate and rhythm. No murmur, rub or gallop is appreciated. Respiratory: Lungs are clear to auscultation, respirations are non-labored, breath sounds are equal. Gastrointestinal: Soft, non-distended, non-tender abdomen without masses or organomegaly noted. There is no rebound or guarding present. Bowel sounds are unremarkable. Back: There is no tenderness to palpation in the midline. There is no obvious deformity. Musculoskeletal: Normal ROM, no tenderness, There is no pedal edema. There is no calf tenderness or swelling. Extremities: No edema. Vascular: Femoral pulse is normal. Posterior tibial pulses are normal .Dorsalis pedis is palpable. Neurological: CN II-XII intact. There are no obvious motor or sensory deficits. Speech is normal. Psychiatric: Cooperative, appropriate mood & affect, normal judgment. Results 07/28/17 07:25 07/28/17 07:25 Cardiac Enzymes 07/28/17 07/28/17 Range/Units 07:25 07:25 AST 54 H (14-36) U/L CK-MB (CK-2) 0.8 (0.0-2.4) ng/mL Troponin I <0.012 (0.000-0.034) ng/mL Coagulation 07/28/17 Range/Units 07:25 PT 10.3 (9.0-12.0) sec APTT 22.9 (22.0-30.0) sec CBC 07/28/17 Range/Units 07:25 WBC 7.2 (3.8-10.6) k/uL RBC 4.83 (3.80-5.40) m/uL Hgb 14.9 (11.4-16.0) gm/dL Hct 42.7 (34.0-46.0) % Plt Count 237 (150-450) k/uL Comprehensive Metabolic Panel 07/28/17 Range/Units 07:25 Sodium 141 (137-145) mmol/L Potassium 4.0 (3.5-5.1) mmol/L Chloride 103 (98-107) mmol/L Carbon Dioxide 26 (22-30) mmol/L BUN 15 (7-17) mg/dL Creatinine 0.69 (0.52-1.04) mg/dL Glucose 83 (74-99) mg/dL Calcium 10.0 (8.4-10.2) mg/dL AST 54 H (14-36) U/L ALT 77 H (9-52) U/L Alkaline Phosphatase 112 (38-126) U/L Total Protein 9.3 H (6.3-8.2) g/dL Albumin 4.6 (3.5-5.0) g/dL Current Medications Generic Name Dose Route Start Last Admin Trade Name Freq PRN Reason Stop Dose Admin Aspirin 325 mg 07/29/17 09:00 Aspirin PO DAILY ELÍAS Nitroglycerin 1 inch 07/28/17 12:00 Nitro-Bid Oint TOPICAL Q6HR ELÍAS Nitroglycerin 0.4 mg 07/28/17 08:36 Nitrostat SUBLINGUAL Q5M PRN Chest Pain Intake and Output 07/27/17 07/28/17 07/28/17 22:59 06:59 14:59 Other: Voiding Method Toilet Weight 58.967 kg Patient Weight 07/29/17 06:59 Weight 58.967 kg 07/28/17 07:25 07/28/17 07:25 EKG Interpretations (text) Normal sinus rhythm within normal limits Assessment and Plan Plan: Pericardial chest pain History of back surgery Patient is doing well obtain cardiac enzymes if negative discharge her home we will do outpatient echo and stress test on her
[2017-07-28] MEDS ORDERED: diphenhydrAMINE 2% CREAM 28.4 GM TUBE TOPICAL PRN (11:31)
[2017-07-28] MEDS ORDERED: DIAZEPAM 5 MG TAB PO PRN (11:31)
[2017-07-28] MEDS ORDERED: oxyCODONE-APAP 10-325MG 1 EACH TAB PO PRN (11:31)
[2017-07-28] MEDS ORDERED: methylPREDNISolone 4 MG TAB TAPER PO SCH (12:00)
[2017-07-28] MEDS ORDERED: NITROGLYCERIN OINT 1 INCH/GM PACKET TOPICAL SCH (12:00)
[2017-07-28] MEDS ORDERED: METHOCARBAMOL 750 MG TAB PO SCH (12:00)
[2017-07-28] MEDS ORDERED: RX INFO: IV CONTRAST WAS GIVEN 1 EACH MISC MISCELLANE PRN (12:18)
[2017-07-28 12:28] VITALS: BP 103/55; PULSE 62; RESP 16; TEMP 98
--- NOTE | 2017-07-28 14:45 | CT ---
EXAMINATION TYPE: CT angio chest DATE OF EXAM: 07/28/2017 COMPARISON: Radiograph same day HISTORY: 37-year-old female with chest pain with elevated D dimer TECHNIQUE: Contiguous axial scanning of the chest performed with IV Contrast, patient injected with 8 7 mL of Omnipaque 350. Coronal/sagittal MIP reconstructions performed. CT DLP: 172.7 mGycm Automated exposure control for dose reduction was used. FINDINGS: The heart is normal size without pericardial effusion. The upper ascending aorta is ectatic at 3.6 cm. Conventional arch vessel branching anatomy. Satisfactory opacification of the pulmonary arterial system. There is some flow artifacts present wit hout evidence for pulmonary embolus. No thoracic lymphadenopathy. Evaluation of the lungs shows mild scattered centrilobular emphysematous cysts. No consolidation or p leural effusion. Larger emphysematous cyst or small pneumatocele at the posterior left lung base. Visualized upper abdomen shows no gross abnormality. Bones: No osseous destructive process. IMPRESSION: 1. NO EVIDENCE FOR PULMONARY EMBOLUS. 2. COPD WITH MILD EMPHYSEMA. CORRELATE WITH PATIENT'S SMOKING HISTORY ESPECIALLY GIVEN PATIENT'S RELA TIVELY YOUNGER AGE. 3. NO ACUTE PULMONARY PROCESS.
[2017-07-28 15:20] LABS: Creatine Kinase 23 U/L (30-135)
[2017-07-28 15:32] LABS: Creatine Kinase MB 1.2 ng/mL (0.0-2.4); Troponin I <0.012 ng/mL (0.000-0.034)
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
[2017-07-29] MEDS ORDERED: ASPIRIN 325 MG TAB PO SCH (09:00)
== END 2017-07-28 17:40 | disposition home or self-care (01) ==
LOC: EC 07:04 → 3OBS 08:36
PROVIDERS: ADMIT Hospitalist; ATTEND Hospitalist
DX: R07.89 Other chest pain (principal); R79.89 Other specified abnormal findings of blood chemistry; R61 Generalized hyperhidrosis; Z98.1 Arthrodesis status; F17.200 Nicotine dependence, unspecified, uncomplicated; M54.6 Pain in thoracic spine; Z79.899 Other long term (current) drug therapy; Z79.52 Long term (current) use of systemic steroids; Z91.040 Latex allergy status; Z91.048 Other nonmedicinal substance allergy status; Z82.49 Family history of ischemic heart disease and other diseases of the circulatory system
CPT/HCPCS: 99285 ×2; 36415; 93005; 85379; 80053; 82550; 82553; 83735; 84484; 85025; 85610; 85730; 71020; 71275; G0378; Q9967; J7509

== ENCOUNTER → 2017-09-26 | Outpatient (CLI) | payer OTHER ==
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
== END | disposition home or self-care (01) ==
LOC: RADXRMAIN 19:46
PROVIDERS: ATTEND Family Medicine
DX: M47.816 Spondylosis without myelopathy or radiculopathy, lumbar region (principal); Z98.1 Arthrodesis status
CPT/HCPCS: 72100

== ENCOUNTER → 2018-09-27 | Outpatient (CLI) | payer OTHER ==
[2018-09-27 23:46] LABS: Basophils # (A) 0.1 k/uL (0-0.2); Basophils % (A) 1 %; Eosinophils # (A) 0.1 k/uL (0-0.7); Eosinophils % (A) 1 %; HCT 42.6 % (34.0-46.0); HGB 13.8 gm/dL (11.4-16.0); Lymphocytes # (A) 1.9 k/uL (1.0-4.8); Lymphocytes % (A) 31 %; MCH 30.2 pg (25.0-35.0); MCHC 32.4 g/dL (31.0-37.0); MCV 93.1 fL (80.0-100.0); Mean Platelet Volume 7.5; Monocytes # (A) 0.5 k/uL (0-1.0); Monocytes % (A) 8 %; Neutrophils # (A) 3.6 k/uL (1.3-7.7); Neutrophils % (A) 57 %; Platelet Count 174 k/uL (150-450); RBC 4.58 m/uL (3.80-5.40); RDW 12.8 % (11.5-15.5); WBC 6.2 k/uL (3.8-10.6)
== END ==
LOC: LABMAIN 22:37
PROVIDERS: ATTEND Obstetrics & Gynecology Obstetrics
DX: Z01.812 Encounter for preprocedural laboratory examination (principal); N92.1 Excessive and frequent menstruation with irregular cycle
CPT/HCPCS: 36415; 85025

== ENCOUNTER 2019-04-07 19:26 | Emergency (ER) | payer OTHER ==
[2019-04-07 19:46] VITALS: RESP 20; TEMP 97.7
[2019-04-07] MEDS ORDERED: SODIUM CHLORIDE 0.9% 500 ML 500 ML IV STA (20:00)
[2019-04-07] MEDS ORDERED: KETOROLAC 30 MG/ML 1 ML VIAL IVP STA (20:05)
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
[2019-04-07 21:09] LABS: Appearance,Urine Turbid (Clear); Bacteria,Urine Many /hpf; Bilirubin,Urine Negative (Negative); Blood,Urine Large (Negative); Color,Urine Yellow; Glucose,Urine (UA) Negative (Negative); Ketones,Urine Negative (Negative); Leukocyte Esterase,Urine Large (Negative); Mucus,Urine Many /hpf; Nitrite,Urine Positive (Negative); Protein,Urine 2+ (Negative); RBC,Urine >182 /hpf (0-5); Specific Gravity,Urine 1.024 (1.001-1.035); Squamous Epithelial Cell,Urine 4 /hpf (0-4); Urobilinogen,Urine <2.0 mg/dL (<2.0); WBC,Urine >182 /hpf (0-5)
[2019-04-07] MEDS ORDERED: cefTRIAXone IN SWFI 1,000 MG/10 ML SYRINGE IVP STA (21:19)
--- NOTE | 2019-04-07 21:23 | CT ---
EXAMINATION TYPE: CT abdomen pelvis wo con DATE OF EXAM: 04/07/2019 COMPARISON: 06/16/2017 HISTORY: right flank pain CT DLP: 428.6 mGycm Automated exposure control for dose reduction was used. TECHNIQUE: Helical acquisition of images was performed from the lung bases through the pelvis. FINDINGS: Lung bases are clear. There is no pleural effusion. Heart size is normal. There is no pericardial eff usion. Liver spleen stomach pancreas gallbladder appear normal. Bile ducts are not dilated. There is no adrenal mass. Kidneys show normal size and contour.. There is no hydronephrosis. There is no retroperitoneal adenopathy. There is posterior fusion surgery at L4-5. There is no evidence of re nal calculus. Ureters are not dilated. Bladder distends smoothly. There is no inguinal hernia. There is no evidence of pelvic mass. There is no mesenteric edema. There is no ascites or free air. Appendix is not definitely seen. There is no sign of thickened appendix. I see no bony destructive process. IMPRESSION: NEGATIVE CT SCAN OF THE ABDOMEN AND PELVIS. NO RENAL STONE OR OBSTRUCTION. NO ADVERSE CHANGE COMPARED TO OLD EXAM.
[2019-04-07 21:34] LABS: Basophils % (A) 0 %; Eosinophils # (A) 0.1 k/uL (0-0.7); Eosinophils % (A) 1 %; HCT 41.5 % (34.0-46.0); HGB 13.9 gm/dL (11.4-16.0); Lymphocytes % (A) 12 %; MCH 30.7 pg (25.0-35.0); MCHC 33.3 g/dL (31.0-37.0); Mean Platelet Volume 7.4; Monocytes # (A) 0.6 k/uL (0-1.0); Monocytes % (A) 7 %; Neutrophils # (A) 6.4 k/uL (1.3-7.7); Neutrophils % (A) 79 %; Platelet Count 166 k/uL (150-450); RBC 4.51 m/uL (3.80-5.40); RDW 13.6 % (11.5-15.5); WBC 8.1 k/uL (3.8-10.6)
[2019-04-07 21:41] LABS: ALT 22 U/L (9-52); AST 19 U/L (14-36); Albumin 3.7 g/dL (3.5-5.0); Alkaline Phosphatase 103 U/L (38-126); Amylase 34 U/L (30-110); Anion Gap 7 mmol/L; Blood Urea Nitrogen 8 mg/dL (7-17); Carbon Dioxide 27 mmol/L (22-30); Chloride 105 mmol/L (98-107); Glucose 98 mg/dL (74-99); Lipase 30 U/L (23-300); Potassium 3.6 mmol/L (3.5-5.1); Sodium 139 mmol/L (137-145); Total Bilirubin 0.5 mg/dL (0.2-1.3)
[2019-04-07] MEDS ORDERED: cefTRIAXone 1,000 MG VIAL (IM USE) IM STA (21:50)
[2019-04-07] MEDS ORDERED: SULFAMETH-TMP DS STARTER PACK 2 TAB BTL PO STA (21:53)
[2019-04-07 22:29] VITALS: BP 140/95; PULSE 68
== END 2019-04-07 22:33 | disposition home or self-care (01) ==
LOC: EC 19:26
DX: N39.0 Urinary tract infection, site not specified (principal); M54.9 Dorsalgia, unspecified; F90.9 Attention-deficit hyperactivity disorder, unspecified type; F17.200 Nicotine dependence, unspecified, uncomplicated; Z98.890 Other specified postprocedural states; Z79.1 Long term (current) use of non-steroidal anti-inflammatories (NSAID); Z79.891 Long term (current) use of opiate analgesic; Z79.899 Other long term (current) drug therapy; Z91.040 Latex allergy status; Z91.048 Other nonmedicinal substance allergy status; Z53.8 Procedure and treatment not carried out for other reasons
CPT/HCPCS: 36415; 80053; 82150; 83690; 85025; 81001; 74176; 99284; 96374; 96372; J0696; J1885

== ENCOUNTER → 2019-10-23 | Outpatient (CLI) | payer OTHER ==
--- NOTE | 2019-10-23 14:08 | MR ---
EXAMINATION TYPE: MR lumbar spine wo/w con DATE OF EXAM: 10/23/2019 COMPARISON: MRI lumbar spine October 09, 2013. CT abdomen and pelvis April 07, 2019 HISTORY: Post Laminectomy Syndrome per order. Persistent low back pain for years shooting into left l eg. History of prior surgery 1992 and 2016. TECHNIQUE: Multiplanar, multisequence images of the lumbar spine is performed without and with IV contrast, util izing 7 mL intravenous Gadavist FINDINGS: Sagittal images of the lumbar spine show vertebral body heights and alignment to remain sat isfactory. Artifact from posterior interpedicular rods and screws identified at L4-L5 levels bilatera lly. There is disc desiccation with moderate to severe disc space narrowing L4-L5 and moderate disc s pace narrowing L5-S1 levels. Disc space heights and hydration are satisfactory above the L4 level. Th e conus medullaris remains normal in position and signal ending at L1 level. The bone marrow signal intensity is within normal limits. No suspicious enhancement. No significant spurring. Axial images show the T12-L1, L1-L2, and L2-L3 levels all to appear within normal limits. Axial images at L3-L4 level shows mild broad-based disc bulge. Spinal canal preserved. Axial images at L4-L5 show artifact from surgical change. There is some facet arthropathy. Spinal can al preserved. Tiny right paracentral disc protrusion effaces the anterior lateral thecal sac axial im age 6 without progression from 2013 MRI. Bilateral neural foramina are patent. Axial images at L5-S1 level shows a left central disc protrusion with spinal canal is preserved. Bila teral neural foramina are patent. Artifact from fusion hardware now present. Mild facet arthropathy n oted. No suspicious incidental retroperitoneal findings. IMPRESSION: Postsurgical and degenerative changes lower lumbar spine. Alignment remains satisfactory. No significant progression in degenerative changes from 2013 noted.
== END | disposition home or self-care (01) ==
LOC: RADMRIMAIN 12:57
PROVIDERS: ATTEND Physician Assistant
DX: M47.816 Spondylosis without myelopathy or radiculopathy, lumbar region (principal); Z98.890 Other specified postprocedural states
CPT/HCPCS: 72158; A9585

== ENCOUNTER → 2023-09-17 | Outpatient (CLI) | payer OTHER ==
--- NOTE | 2023-09-18 08:38 | MM ---
Reason for Exam: Screening (asymptomatic). Patient History: Menarche at age 10. First Full-Term at age 18. Risk Values: Milagro 5 year model risk: 0.7%. NCI Lifetime model risk: 8.6%. Tissue Density: The breast tissue is extremely dense which could obscure a lesion on mammography. Findings: Analyzed By CAD. There is no suspicious group of microcalcifications within either breast. Benign-appearing calcifications within the right breast. No suspicious mass of the left breast. Asymmetry demonstrated within the inferior right breast only on the MLO view at anterior depth. Overall Assessment: Incomplete: need additional imaging evaluation, BI-RAD 0 Management: Diagnostic Mammogram of the right breast. A clinical breast exam by your physician is recommended on an annual basis and results should be correlated with mammographic findings. [facility] will attempt to contact patient to return for supplemental views and ultrasound if indicated. Note on Milagro scores and lifetime risk: 1. A Milagro score greater than 3% is considered moderate risk. If this is the case, consider specialist referral to assess eligibility for a risk reducing agent. If overall lifetime risk for the development of breast cancer is 20% or higher, the patient may qualify for future screening with alternating mammogram and breast MRI. Electronically signed and approved by: Fabricio Briggs D.O.
== END | disposition home or self-care (01) ==
LOC: RADMAMWWP 07:48
PROVIDERS: ATTEND Family Medicine
DX: Z12.31 Encounter for screening mammogram for malignant neoplasm of breast (principal)
CPT/HCPCS: 77063; 77067

== ENCOUNTER → 2023-09-25 | Outpatient (CLI) | payer OTHER ==
--- NOTE | 2023-09-25 15:29 | MM ---
Reason for Exam: Additional evaluation requested from abnormal screening. Last screening mammogram was performed less than 1 month ago. Patient History: Menarche at age 10. First Full-Term at age 18. Risk Values: Milagro 5 year model risk: 0.7%. NCI Lifetime model risk: 8.6%. Tissue Density: Right: The breast tissue is heterogeneously dense. This may lower the sensitivity of mammography. Findings: Analyzed By CAD. The questioned inferior right breast asymmetric density disperses on 3-D and 3-D lateral views. No persisting abnormality is seen. Overall Assessment: Benign, BI-RAD 2 Management: Screening Mammogram of both breasts in 1 year. . Results were given to the patient verbally at the time of exam. Patient should continue monthly self-breast exams. A clinical breast exam by your physician is recommended on an annual basis. This exam should not preclude additional follow-up of suspicious palpable abnormalities. Note on Milagro scores and lifetime risk: 1. A Milagro score greater than 3% is considered moderate risk. If this is the case, consider specialist referral to assess eligibility for a risk reducing agent. 2. If overall lifetime risk for the development of breast cancer is 20% or higher, the patient may qualify for future screening with alternating mammogram and breast MRI. Electronically signed and approved by: Kelin Navarro M.D. Radiologist
== END | disposition home or self-care (01) ==
LOC: RADMAMWWP 15:01
PROVIDERS: ATTEND Family Medicine
DX: R92.331 Mammographic heterogeneous density, right breast (principal)
CPT/HCPCS: 77061; 77065